=== PATIENT | male | born 1995 | race Caucasian/White ===

== ENCOUNTER 2020-04-11 07:10 | Emergency (ER) | payer OTHER ==
[~2020-04-11] VITALS: Ht 190.5 cm; Wt 138.3 kg
[2020-04-11] MEDS ORDERED: LISINOPRIL20 MG PO (07:31)
[2020-04-11] MEDS ORDERED: METFORMIN HCL500 MG PO (07:32)
[2020-04-11] MEDS ORDERED: FLUOXETINE HCL40 MG PO (07:33)
[2020-04-11] MEDS ORDERED: DOXYCYCLINE 10100 M2 PO (07:34)
[2020-04-11] MEDS ORDERED: DECADRON6 MG PO (07:34)
[2020-04-11] MEDS ORDERED: PREDNISONE10 MG PO (09:42)
[2020-04-11] MEDS ORDERED: TESSALON PERLE100 MG PO (09:42)
[2020-04-11 10:35] VITALS: BP 116/72
== END 2020-04-11 10:35 | disposition home or self-care (01) ==
LOC: ER 07:10
DX: U07.1 COVID-19 (principal); J18.9 Pneumonia, unspecified organism; E11.9 Type 2 diabetes mellitus without complications; I10 Essential (primary) hypertension; Z79.2 Long term (current) use of antibiotics; Z79.84 Long term (current) use of oral hypoglycemic drugs; Z79.899 Other long term (current) drug therapy